=== PATIENT | male | born 1965 ===

== ENCOUNTER 2017-04-25 02:07 | Observation (INO) | payer MEDICAID ==
--- NOTE | 2017-04-25 02:20 | ED PDOC ---
Arrival/HPI - General Chief Complaint: High Blood Pressure Time Seen by Provider: 04/25/17 02:12 Historian: Patient - History of Present Illness Narrative History of Present Illness (Text): 04/25/17 02:20 Judson Stringer is a 51 year old male, whose past medical history includes hypertension, who presents to the Emergency department complaining of shortness of breath tonight. Patient states he went to his doctor's office and noted his blood pressure was elevated. Patient's hypertensive medication dosage was doubled and patient reports he began feeling dizzy and tired. Patient states tonight he developed a headache and shortness of breath. Patient denies any fever, chills, chest pain, nausea, vomiting, diarrhea, urinary symptoms, back pain, neck pain, or any other complaints. Symptom Onset: Gradual Symptom Course: Unchanged Activities at Onset: Light Context: Home Past Medical History - Provider Review Nursing Documentation Reviewed: Yes - Infectious Disease Hx of Infectious Diseases: None - Tetanus Immunization Tetanus Immunization: Unknown - Past Medical History Past Medical History: No Previous - Cardiac Hx Cardiac Disorders: Yes Hx Hypertension: Yes Hx Pacemaker: No Other/Comment: Enlarged heart - Pulmonary Hx Respiratory Disorders: No (DENIES HISTORY) - Neurological Hx Neurological Disorder: No - HEENT Hx HEENT Disorder: No (DENIES HISTORY) - Renal Hx Renal Disorder: No - Endocrine/Metabolic Hx Endocrine Disorders: No (DENIES HISTORY) - Hematological/Oncological Hx Blood Disorders: No - Integumentary Hx Dermatological Disorder: (DENIES HISTORY) Hx Basal Cell Carcinoma: No - Musculoskeletal/Rheumatological Hx Musculoskeletal Disorders: (DENIES HISTORY) - Gastrointestinal Hx Gastrointestinal Disorders: (DENIES HISTORY) - Genitourinary/Gynecological Hx Genitourinary Disorders: Yes Other/Comment: PATIENT REPORTS FREQUENT URINATION SINCE CHILDHOOD - Psychiatric Hx Psychophysiologic Disorder: No Hx Substance Use: No - Past Surgical History Past Surgical History: No Previous - Surgical History Hx Cardiac Catheterization: Yes Other/Comment: foot surgery - Anesthesia Hx Anesthesia Reactions: No Hx Malignant Hyperthermia: No - Suicidal Assessment Feels Threatened In Home Enviroment: No Family/Social History - Physician Review Nursing Documentation Reviewed: Yes Family/Social History: Unknown Family HX Smoking Status: Former Smoker Hx Alcohol Use: Yes Hx Substance Use: No Allergies/Home Meds Allergies/Adverse Reactions: Allergies No Known Allergies Allergy (Verified 04/25/17 02:21) Home Medications: Home Meds Medication Instructions Recorded Confirmed Digoxin [Lanoxin] 0.25 mg PO DAILY 07/09/16 04/25/17 Furosemide [Lasix] 40 mg PO DAILY 04/25/17 04/25/17 Potassium Chloride [K-Dur 20] 20 meq PO DAILY 04/25/17 04/25/17 Review of Systems - Physician Review All systems were reviewed & negative as marked: Yes - Review of Systems Constitutional: Fatigue. absent: Fevers Eyes: Normal ENT: Normal Respiratory: SOB Cardiovascular: Normal. absent: Chest Pain Gastrointestinal: Normal. absent: Abdominal Pain, Diarrhea, Nausea, Vomiting Genitourinary Male: Normal. absent: Dysuria, Frequency, Hematuria, Urinary Output Changes Musculoskeletal: Normal. absent: Back Pain, Neck Pain Skin: Normal. absent: Rash Neurological: Headache, Dizziness Endocrine: Normal Hemo/Lymphatic: Normal Psychiatric: Normal Physical Exam Vital Signs Reviewed: Yes Vital Signs Temp Pulse Pulse Resp BP BP Pulse Ox 04/25/17 16:26 71 18 164/91 H 99 04/25/17 14:29 72 152/101 H 04/25/17 14:28 72 152/101 H 04/25/17 14:00 63 04/25/17 13:44 98.9 F 70 18 148/96 H 04/25/17 09:46 71 148/96 H 04/25/17 09:31 70 18 148/96 H 04/25/17 08:39 77 20 164/110 H 100 04/25/17 08:36 77 164/110 H 04/25/17 06:42 72 19 135/88 100 04/25/17 05:16 80 22 150/96 H 98 04/25/17 04:21 67 22 168/97 H 100 04/25/17 03:18 98.9 F 71 16 157/111 H 99 04/25/17 03:06 70 18 163/102 H 97 04/25/17 03:01 80 187/117 H 04/25/17 02:20 83 187/117 H 04/25/17 02:17 97.7 F 67 18 196/124 H 97 Temperature: Afebrile Blood Pressure: Hypertensive Pulse: Regular Respiratory Rate: Normal Appearance: Positive for: Well-Appearing, Non-Toxic, Comfortable Pain Distress: None Mental Status: Positive for: Alert and Oriented X 3 - Systems Exam Head: Present: Atraumatic, Normocephalic Pupils: Present: PERRL Extroacular Muscles: Present: EOMI Conjunctiva: Present: Normal Mouth: Present: Moist Mucous Membranes Neck: Present: Normal Range of Motion Respiratory/Chest: Present: Clear to Auscultation, Good Air Exchange. No: Respiratory Distress, Accessory Muscle Use Cardiovascular: Present: Regular Rate and Rhythm, Normal S1, S2. No: Murmurs Abdomen: Present: Normal Bowel Sounds. No: Tenderness, Distention, Peritoneal Signs Back: Present: Normal Inspection Upper Extremity: Present: Normal Inspection. No: Cyanosis, Edema Lower Extremity: Present: Normal Inspection. No: Edema Neurological: Present: GCS=15, CN II-XII Intact, Speech Normal Skin: Present: Warm, Dry, Normal Color. No: Rashes Psychiatric: Present: Alert, Oriented x 3, Normal Insight, Normal Concentration Medical Decision Making ED Course and Treatment: 04/25/17 02:20 Impression: 51 year old male complaining of dizziness, headache, and shortness of breath. Plan: -- EKG -- Chest X-ray -- Labs, cardiac enzymes, BNP -- Duoneb -- Apresoline -- Reassess and disposition Prior Visits: Notes and results from previous visits were reviewed. On 09/18/2016, pt was seen in the Emergency department for left-sided dental pain. Pt was d/c home. Progress Notes: Reviewed EKG, NSR at [address]pm. LVH. Non-specific ST/T wave changes. 04/25/17 04:15 Reviewed radiology, Chest X-ray shows cardiomegaly. 04/25/17 04:41 Case discussed with medical psychotherapist medical scientific liaison, who is aware and agrees with plan. 04/25/17 04:[address] Simmons, who is aware and agrees with plan. Accepts pt in to hospitalist service. Pt will go to Telemetry observation for CHF. - Lab Interpretations Lab Results: 04/25/17 02:25 04/25/17 02:25 Lab Results 04/25/17 02:25: Sodium 139, Chloride 105, Potassium 3.6, Carbon Dioxide 24, Anion Gap 14, BUN 18, Creatinine 0.9, Est GFR ( Amer) > 60, Est GFR (Non- Af Amer) > 60, Random Glucose 110, Calcium 8.8, Total Bilirubin 0.5, AST 30, ALT 44, Alkaline Phosphatase 94, Lactate Dehydrogenase 599, Total Creatine Kinase 332 H, CK-MB (CK-2) 3.3, CK-MB (CK-2) % Cancelled, Troponin I 0.11 D, NT -Pro-B Natriuret Pep 643 H, Total Protein 6.7, Albumin 4.2, Globulin 2.5, Albumin/Globulin Ratio 1.7 04/25/17 02:25: pO2 56 H, VBG pH 7.38, VBG pCO2 43.0, VBG HCO3 25.4, VBG Total CO2 26.7, VBG O2 Sat (Calc) 92.3 H, VBG Base Excess 0.0, VBG Potassium 3.3 L, Sodium 139.0, Chloride 107.0, Glucose 108, Lactate 0.9, FiO2 21.0, Venous Blood Potassium 3.3 L 04/25/17 02:25: WBC 7.5 D, RBC 4.67, Hgb 15.4, Hct 41.9 L, MCV 89.7, MCH 33.0, MCHC 36.8, RDW 12.7, Plt Count 196, MPV 9.8, Gran % 64.8, Lymph % (Auto) 24.8, [place] % (Auto) 7.5 H, Eos % (Auto) 2.5, Baso % (Auto) 0.4, Gran # 4.87, Lymph # 1.9, [place] # 0.6, Eos # 0.2, Baso # 0.03 I have reviewed the lab results: Yes - RAD Interpretation Radiology Orders: 04/25/17 02:24 CHEST PORTABLE [RAD] Stat Cutter Down: ED Physician - EKG Interpretation Interpreted by ED Physician: Yes Type: 12 lead EKG - Medication Orders Current Medication Orders: Discontinued Medications Acetaminophen (Tylenol 325mg Tab) 650 mg PO STAT STA Stop: 04/25/17 05:28 Last Admin: 04/25/17 05:37 Dose: 650 mg MAR Pain/Vitals Document 04/25/17 05:37 JOL (Rec: 04/25/17 05:40 [id number]) Pain Reassessment Is This A Pain ReAssessment? No Sleep Is patient sleeping during reassessment? 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 Yes Sleep Is patient sleeping during reassessment? No Presence of Pain Presence of Pain Yes Location Pain Location [employer] Acetaminophen (Tylenol 325mg Tab) 650 mg PO Q6H PRN PRN Reason: Pain, moderate (4-7) Albuterol/Ipratropium (Duoneb 3 Mg/0.5 Mg (3 Ml) Ud) 3 ml IH STAT STA Stop: 04/25/17 02:24 Last Admin: 04/25/17 02:35 Dose: 3 ml Albuterol/Ipratropium (Duoneb 3 Mg/0.5 Mg (3 Ml) Ud) 3 ml IH [id number] PRN PRN Reason: Shortness of Breath Aspirin (Ecotrin) 81 mg PO DAILY [facility] Last Admin: 04/26/17 10:49 Dose: 81 mg Carvedilol (Coreg) 3.125 mg PO BID [facility] Last Admin: 04/25/17 09:46 Dose: 3.125 mg MAR Pulse and Blood Pressure Document 04/25/17 09:46 GMD (Rec: 04/25/17 09:47 GMD [id number]) Pulse Pulse Rate (60-90) 71 Blood Pressure Blood Pressure (100/60-150/90) 148/96 Carvedilol (Coreg) 12.5 mg PO STAT STA Stop: 04/25/17 11:56 Last Admin: 04/25/17 14:29 Dose: 12.5 mg MAR Pulse and Blood Pressure Document 04/25/17 14:29 EQ (Rec: 04/25/17 14:29 EQ [id number]) Pulse Pulse Rate (60-90) 72 Blood Pressure Blood Pressure (100/60-150/90) 152/101 Carvedilol (Coreg) 12.5 mg PO BID [facility] Last Admin: 04/26/17 10:51 Dose: 12.5 mg MAR Pulse and Blood Pressure Document 04/26/17 10:51 DH (Rec: 04/26/17 10:51 DH [id number]) Pulse Pulse Rate (60-90) 63 Blood Pressure Blood Pressure (100/60-150/90) 157/87 Carvedilol (Coreg) 25 mg PO BID [facility] Clonidine HCl (Catapres) 0.1 mg PO BID [facility] Last Admin: 04/25/17 08:36 Dose: 0.1 mg MAR Pulse and Blood Pressure Document 04/25/17 08:36 JOL (Rec: 04/25/17 08:38 JOL [id number]) Pulse Pulse Rate (60-90) 77 Blood Pressure Blood Pressure (100/60-150/90) 164/110 Digoxin (Lanoxin) 0.25 mg PO 1400 [facility] Last Admin: 04/26/17 14:50 Dose: 0.25 mg MAR Apical Pulse Rate Document 04/26/17 14:50 DH (Rec: 04/26/17 14:50 [place] [facility] [id number] Apical Pulse Rate Apical Pulse Rate (60-90 beats/min) 65 Diphenhydramine HCl (Benadryl) 25 mg PO ONCE ONE Stop: 04/25/17 21:43 Last Admin: 04/25/17 22:46 Dose: 25 mg Enoxaparin Sodium (Lovenox) 40 mg SC STAT STA PRN Reason: Protocol Stop: 04/25/17 12:01 Last Admin: 04/25/17 14:28 Dose: 40 mg Subcutaneous Administrations Document 04/25/17 14:28 EQ (Rec: 04/25/17 14:28 EQ [id number]) Injection Site MAR Injection Site Umbilicus Charges for Administration # of Subcutaneous Administrations 1 Furosemide (Lasix) 20 mg IVP ONCE ONE Stop: 04/25/17 04:45 Last Admin: 04/25/17 05:16 Dose: 20 mg MAR Blood Pressure Document 04/25/17 05:16 [email or web address] (Rec: 04/25/17 05:[id number]) Blood Pressure Blood Pressure (100/60-150/90) 150/96 IVP Administration Document 04/25/17 05:16 [email or web address] (Rec: 04/25/17 05:[id number]) Charges for Administration # of IVP Administrations 1 Furosemide (Lasix) 40 mg IVP DAILY [facility] Last Admin: 04/26/17 10:50 Dose: 40 mg MAR Blood Pressure Document 04/26/17 10:50 DH (Rec: 04/26/17 10:51 [id number]) Blood Pressure Blood Pressure (100/60-150/90) 157/87 IVP Administration Document 04/26/17 10:50 DH (Rec: 04/26/17 10:51 [id number]) Charges for Administration # of IVP Administrations 1 Furosemide (Lasix) 40 mg IVP ONCE ONE Stop: 04/25/17 15:01 Last Admin: 04/25/17 16:26 Dose: Hydralazine HCl (Apresoline) 10 mg IVP ONCE ONE Stop: 04/25/17 02:33 Last Admin: 04/25/17 03:01 Dose: 10 mg IVP Administration Document 04/25/17 03:01 [email or web address] (Rec: 04/25/17 03:[id number]) Charges for Administration # of IVP Administrations 1 MAR Pulse and Blood Pressure Document 04/25/17 03:01 [email or web address] (Rec: 04/25/17 03:[id number]) Pulse Pulse Rate (60-90) 80 Blood Pressure Blood Pressure (100/60-150/90) 187/117 Hydralazine HCl (Apresoline) 10 mg IVP Q6 PRN PRN Reason: for sbp.170 Ibuprofen (Motrin Tab) 600 mg PO STAT STA Stop: 04/25/17 17:00 Last Admin: 04/25/17 17:29 Dose: 600 mg MAR Pain/Vitals Document 04/25/17 17:29 EQ (Rec: 04/25/17 17:29 EQ [id number]) Pain Reassessment Is This A Pain ReAssessment? No Sleep Is patient sleeping during reassessment? No Presence of Pain Presence of Pain Yes Re-Assess: MAR Pain/Vitals Document 04/25/17 18:29 KL (Rec: 04/25/17 18:58 KL [id number]) Pain Reassessment Is This A Pain ReAssessment? Yes Sleep Is patient sleeping during reassessment? 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 Description Constant Intensity 8 Scale Used Numeric Lisinopril (Zestril) 20 mg PO STAT STA Stop: 04/25/17 11:56 Last Admin: 04/25/17 14:28 Dose: 20 mg MAR Pulse and Blood Pressure Document 04/25/17 14:28 EQ (Rec: 04/25/17 14:28 EQ [id number]) Pulse Pulse Rate (60-90) 72 Blood Pressure Blood Pressure (100/60-150/90) 152/101 Lisinopril (Zestril) 20 mg PO DAILY [facility] Last Admin: 04/26/17 10:50 Dose: 20 mg MAR Pulse and Blood Pressure Document 04/26/17 10:50 DH (Rec: 04/26/17 10:50 [id number]) Pulse Pulse Rate (60-90) 63 Blood Pressure Blood Pressure (100/60-150/90) 157/87 Nitroglycerin (Nitro-Bid 2% Oint) 1 ea TOP ONCE STA Stop: 04/25/17 03:44 Last Admin: 04/25/17 03:57 Dose: 1 ea Pneumococcal Polyvalent Vaccine (Pneumovax 23 Vaccine) 0.5 ml IM .ONCE ONE Stop: 04/25/17 13:56 Last Admin: 04/26/17 00:07 Dose: Potassium Chloride (K-Dur 20 Meq Er Tab) 40 meq PO STAT STA Stop: 04/25/17 11:59 Last Admin: 04/25/17 14:28 Dose: 40 meq Spironolactone (Aldactone) 25 mg PO BID [facility] Last Admin: 04/26/17 10:51 Dose: 25 mg - Scribe Statement The provider has reviewed the documentation as recorded by the Norberto De Provider Scribe Attestation: All medical record entries made by the Scribkaushik were at my direction and personally dictated by me. I have reviewed the chart and agree that the record accurately reflects my personal performance of the history, physical exam, medical decision making, and the department course for this patient. I have also personally directed, reviewed, and agree with the discharge instructions and disposition. Disposition/Present on Arrival - Present on Arrival Any Indicators Present on Arrival: No History of DVT/PE: No History of Uncontrolled Diabetes: No Urinary Catheter: No History of Decub. Ulcer: No History Surgical Site Infection Following: None - Disposition Have Diagnosis and Disposition been Completed?: Yes Diagnosis: Benign essential hypertension, Elevated troponin Disposition: HOSPITALIZED Disposition Time: 04:00 Condition: GOOD
[2017-04-25] MEDS ORDERED: Albuterol-Ipratrop 3 mg / 0.5 (3 ml) UD IH STA (02:23)
[2017-04-25 02:54] LABS: BASO # 0.03 K/mm3 (0.0-2.0); BASO % 0.4 % (0.0-3.0); EOS # 0.2 (0.0-0.7); EOS % 2.5 % (1.5-5.0); GRAN # 4.87 (1.4-6.5); GRAN % 64.8 % (50.0-68.0); HEMATOCRIT 41.9 % (42.0-52.0); LYMPH # 1.9 (1.2-3.4); LYMPH % 24.8 % (22.0-35.0); MEAN CELL VOLUME 89.7 fl (80.0-105.0); MEAN CORPUSCULAR HGB CONC 36.8 g/dl (31.0-37.0); MEAN PLATELET VOLUME 9.8 fl (7.0-11.0); MONO # 0.6 (0.1-0.6); MONO % 7.5 % (1.0-6.0); RED CELL DISTRIBUTION WIDTH 12.7 % (11.5-14.5)
[2017-04-25 02:57] LABS: VENOUS BLOOD PH 7.38 (7.32-7.43)
[2017-04-25 03:01] LABS: ALB/GLOB RATIO 1.7 (1.1-1.8); ALKALINE PHOSPHATASE 94 U/L (38-126); ALT/SGPT 44 U/L (7-56); AST/SGOT 30 U/L (17-59); BILIRUBIN,TOTAL 0.5 mg/dL (0.2-1.3); BLOOD UREA NITROGEN 18 mg/dL (7-21); CALCIUM 8.8 mg/dL (8.4-10.5); CARBON DIOXIDE 24 mmol/L (21-33); CHLORIDE 105 mmol/L (98-107); GFR AFRICAN-AMERICAN > 60; GLUCOSE,RANDOM 110 mg/dL (70-110); POTASSIUM 3.6 mmol/L (3.6-5.0); SODIUM 139 mmol/L (132-148); TOTAL PROTEIN 6.7 g/dL (5.8-8.3); WHITE BLOOD COUNT 7.5 10^3/ul (4.5-11.0)
[2017-04-25 03:14] LABS: TROPONIN I 0.11 ng/mL
[2017-04-25] MEDS ORDERED: Promethazine/Cod 6.25mg-10mg/5ml Syr UD PO STA (03:14)
[2017-04-25] MEDS ORDERED: Nitroglycerin 2% Ointment Foilpak UD TOP STA (03:43)
--- NOTE | 2017-04-25 06:06 | CP.PCM.HP ---
<Kennedy Villa - Last Filed: 04/25/17 06:31> History of Present Illness - History of Present Illness History of Present Illness: Chief Complaint Shortness of breath and headache HPI Patient is a 51 year old male with past medical history of CHF and uncontrolled HTN who presents to [facility] ED 04/25/17 with complaints of shortness of breath which started on 04/19. Patient states his SBP normally runs in the 200s and went to see his floor representative Dr. Barbour on 04/17 regarding his BP readings. Patient states he was directed by Dr. Barbour to double his dosage for clonidine. On a day after doubling his clonidine dosage, patient said he began to feel short of breath. He states it was present with exertion and resting. A few days later patient states he began to feel congested. Patient decided to come to the ED because with his shortness of breath and headaches he found he was unable to sleep and became really concerned, stating it was a similar story with his previous admission to [facility]. Patient denies fevers, chills, sick contacts, abdominal pain, n/v/, chest pain. PMD: None currently Truckman: Dr. Barbour SHx: Cardiac cath- negative as per patient FHx: [place] - father and sister Present on Admission - Present on Admission Any Indicators Present on Admission: No Review of Systems - Review of Systems Systems not reviewed;Unavailable: Acuity of Condition - Constitutional Constitutional: Headache. absent: Anorexia, Chills, Fever - Cardiovascular Cardiovascular: Dyspnea. absent: Chest Pain, Diaphoresis - Respiratory Respiratory: Cough, Dyspnea, Chest Congestion - Gastrointestinal Gastrointestinal: absent: Abdominal Pain, Nausea, Vomiting - Genitourinary Genitourinary: absent: Difficulty Urinating, Dysuria - Musculoskeletal Musculoskeletal: absent: Back Pain, Numbness - Psychiatric Psychiatric: Abnormal Sleep Pattern. absent: Anxiety - Endocrine Endocrine: absent: Cold Intolorance, Fatigue Past Patient History - Infectious Disease Hx of Infectious Diseases: None - Tetanus Immunizations Tetanus Immunization: Unknown - Past Medical History & Family History Past Medical History?: No - Past Social History Smoking Status: Former Smoker - CARDIAC Hx Cardiac Disorders: Yes Hx Hypertension: Yes Hx Pacemaker: No Other/Comment: Enlarged heart - PULMONARY Hx Respiratory Disorders: No (DENIES HISTORY) - NEUROLOGICAL Hx Neurological Disorder: No - HEENT Hx HEENT Problems: No (DENIES HISTORY) - RENAL Hx Chronic Kidney Disease: No - ENDOCRINE/METABOLIC Hx Endocrine Disorders: No (DENIES HISTORY) - HEMATOLOGICAL/ONCOLOGICAL Hx Blood Disorders: No - INTEGUMENTARY Hx Dermatological Problems: (DENIES HISTORY) Hx Basil Cell: No - MUSCULOSKELETAL/RHEUMATOLOGICAL Hx Musculoskeletal Disorders: (DENIES HISTORY) - GASTROINTESTINAL Hx Gastrointestinal Disorders: (DENIES HISTORY) - GENITOURINARY/GYNECOLOGICAL Hx Genitourinary Disorders: Yes Other/Comment: PATIENT REPORTS FREQUENT URINATION SINCE CHILDHOOD - PSYCHIATRIC Hx Psychophysiologic Disorder: No Hx Substance Use: No - SURGICAL HISTORY Hx Cardiac Catheterization: Yes Other/Comment: foot surgery - ANESTHESIA Hx Anesthesia Reactions: No Hx Malignant Hyperthermia: No Meds Allergies/Adverse Reactions: Allergies Allergy/AdvReac Type Severity Reaction Status Date / Time No Known Allergies Allergy Verified 04/25/17 02:21 Physical Exam - Constitutional Appears: Well - Head Exam Head Exam: ATRAUMATIC, NORMAL INSPECTION, NORMOCEPHALIC - Eye Exam Eye Exam: EOMI, Normal appearance Pupil Exam: NORMAL ACCOMODATION - ENT Exam ENT Exam: Mucous Membranes Moist, Normal Exam - Neck Exam Neck exam: Positive for: Normal Inspection - Respiratory Exam Respiratory Exam: Decreased Breath Sounds, Clear to Auscultation Bilateral - Cardiovascular Exam Cardiovascular Exam: REGULAR RHYTHM, +S1, +S2 - GI/Abdominal Exam GI & Abdominal Exam: Normal Bowel Sounds, Soft. absent: Rebound - Neurological Exam Neurological exam: Alert, CN II-XII Intact, Oriented x3 Results - Vital Signs Recent Vital Signs: Last Vital Signs Temp 98.9 F 04/25/17 03:18 Pulse 80 04/25/17 05:16 Resp 22 04/25/17 05:16 BP 150/96 H 04/25/17 05:16 Pulse Ox 98 04/25/17 05:16 - Labs Result Diagrams: 04/25/17 02:25 04/25/17 02:25 Assessment & Plan - Assessment and Plan (Free Text) Plan: Assessment 51 year old male presenting with shortness of breath Plan 1. CHF exacerbation -Lasix 40 IV daily -Carvedilol -Continue Digoxin, check dig levels -Hydralazine IV q 6 prn >165, hold if heart rate greater than 100 -O2 NC 2L -Duonebs PRN -Head above 30 -Monitor strict ins and outs and daily weights -Serial Trops and EKGs -81 mg Aspirin -Heart healthy diet -Cardiology Consult 2. HTN - Continue Clonidine <Iris ALBRECHT,Leighton - Last Filed: 04/26/17 13:27> Results - Vital Signs Recent Vital Signs: Last Vital Signs Temp 98.7 F 04/26/17 12:00 Pulse 63 04/26/17 12:00 Resp 20 04/26/17 12:00 BP 153/97 H 04/26/17 12:00 Pulse Ox 99 04/26/17 06:00 - Labs Result Diagrams: 04/26/17 05:40 04/26/17 05:40 Labs: Laboratory Results - last 24 hr 04/25/17 04/26/17 04/26/17 16:20 05:40 05:40 WBC 7.0 RBC 4.64 Hgb 15.1 Hct 41.9 L MCV 90.3 MCH 32.5 MCHC 36.0 RDW 12.7 Plt Count 184 MPV 9.8 Gran % 64.2 Lymph % (Auto) 23.0 [place] % (Auto) 8.6 H Eos % (Auto) 3.9 Baso % (Auto) 0.3 Gran # 4.49 Lymph # 1.6 [place] # 0.6 Eos # 0.3 Baso # 0.02 Sodium 140 Potassium 3.6 Chloride 106 Carbon Dioxide 25 Anion Gap 13 BUN 15 Creatinine 0.9 Est GFR ( Amer) > 60 Est GFR (Non-Af Amer) > 60 Random Glucose 109 Hemoglobin A1c Calcium 8.8 Phosphorus 3.8 Magnesium 2.2 Total Creatine Kinase 179 Triglycerides 147 Cholesterol 194 LDL Cholesterol Direct 133 H HDL Cholesterol 41 TSH 3rd Generation Influenza Typ A,B (EIA) Negative for flu a/b 04/26/17 04/26/17 05:40 05:40 WBC RBC Hgb Hct MCV MCH MCHC RDW Plt Count MPV Gran % Lymph % (Auto) [place] % (Auto) Eos % (Auto) Baso % (Auto) Gran # Lymph # [place] # Eos # Baso # Sodium Potassium Chloride Carbon Dioxide Anion Gap BUN Creatinine Est GFR ( Amer) Est GFR (Non-Af Amer) Random Glucose Hemoglobin A1c 5.6 Calcium Phosphorus Magnesium Total Creatine Kinase Triglycerides Cholesterol LDL Cholesterol Direct HDL Cholesterol TSH 3rd Generation 1.91 Influenza Typ A,B (EIA) Attending/Attestation - Attestation I have personally seen and examined this patient.: Yes I have fully participated in the care of the patient.: Yes I have reviewed all pertinent clinical information: Yes Notes (Text): -I agree with the above H&P completed by the resident physician with the following additions and/or changes: The patient is a 51 year old man with a history of poorly controlled HTN and systolic CHF, who is being admitted for acute CHF exacerbation and hypertensive urgency. We will start him on Lasix 40mg IV Q12hrs and monitor strict I/O's and daily weights. We will continue his home meds of Digoxin, Coreg and Clonidine. We will hold his home meds of Losartan for now (with plan to re-start once pt has been transitioned from IV to oral Lasix). Additional PRN IV Hydralazine, as needed. Cardiology has been consulted. 04/26/17 13:26
[2017-04-25] MEDS ORDERED: Albuterol-Ipratrop 3 mg / 0.5 (3 ml) UD IH PRN (06:54)
--- NOTE | 2017-04-25 08:55 | RAD ---
HISTORY: sob COMPARISON: 06/16/2016 FINDINGS: LUNGS: No active pulmonary disease. PLEURA: No significant pleural effusion identified, no pneumothorax apparent. CARDIOVASCULAR: Normal. OSSEOUS STRUCTURES: No significant abnormalities. VISUALIZED UPPER ABDOMEN: Normal. OTHER FINDINGS: None. IMPRESSION: No active disease.
--- NOTE | 2017-04-25 09:00 | CARD ---
APPROVED REPORT EKG Measurement Heart [id number] <Conclusion> Normal sinus rhythm Left ventricular hypertrophy with QRS widening NSSTW changes C/W prioe ECG 06/14/16: the rate is slower and the QTc is normal. Possible delta wave 1, AVL, consider pre-excitation.
[2017-04-25] MEDS ORDERED: Potassium Chloride 20 mEq ER Tab PO STA (11:58)
[2017-04-25] MEDS ORDERED: Enoxaparin 40 mg Syringe SC STA (12:00)
--- NOTE | 2017-04-25 12:45 | CT ---
PROCEDURE: CT HEAD WITHOUT CONTRAST. HISTORY: intractible headache COMPARISON: None available. TECHNIQUE: Axial computed tomography images were obtained through the head/brain without intravenous contrast. Radiation dose: Total exam DLP = 1059.36 mGy-cm. This CT exam was performed using one or more of the following dose reduction techniques: Automated exposure control, adjustment of the mA and/or kV according to patient size, and/or use of iterative reconstruction technique. FINDINGS: HEMORRHAGE: No intracranial hemorrhage. BRAIN: Stable limited subcortical white-matter change identified at the bilateral frontal and parietal lobes primarily, once again. No acute cortical edema is appreciated and there is no mass-effect. This may be a function of chronic microangiopathy of the patient is a vasculopath in particular however workup with MRI without contrast is advised for additional characterization, was previously evaluated. No suspicious extra-axial collection is identified in the midline brain anatomy is unremarkable. VENTRICLES: Unremarkable. No hydrocephalus. CALVARIUM: Unremarkable. PARANASAL SINUSES: Unremarkable as visualized. No significant inflammatory changes. MASTOID AIR CELLS: Unremarkable as visualized. No inflammatory changes. OTHER FINDINGS: None. IMPRESSION: Stable subcortical white matter lucency is seen in the bilateral frontal and parietal lobes once again without acute cortical edema or mass effect ; no intracranial hemorrhage or hydrocephalus. The etiology is unclear this could reflect chronic microangiopathy in this patient if the patient is a vasculopath arise other potential etiology. However, it appears somewhat prominent for patient not yet approaching at least 60 and further evaluation is recommended if not already performed, including brain MRI with and without contrast.
[2017-04-25 13:55] VITALS: BMI 32.9
[2017-04-25] MEDS ORDERED: Pneumococcal 23-Valent Vaccine IM ONE (13:55)
[2017-04-25] MEDS: Digoxin 250 mcg (0.25 mg) Tab PO SCH (14:43)
[2017-04-26 00:18] VITALS: RESP 20
--- NOTE | 2017-04-26 02:38 | CON ---
DATE: 04/25/2017 CONSULT SERVICE: Cardiology. REASON FOR CONSULTATION: Followup shortness of breath, headache, uncontrolled hypertension and feel congested, history of CHF. BRIEF CLINICAL HISTORY: This is a 51-year-old male with past medical history congestive heart failure, uncontrolled hypertension, cardiomyopathy, nonischemic, being seen by Dr. Barbour, recently seen on 04/17/2017 and he doubled up the blood pressure medication, came to the emergency room with complaint of shortness of breath, feel congested, and headache and blood pressure was 200 on admission. PAST MEDICAL HISTORY: Significant for uncontrolled hypertension, noncompliance with the medication. PREVIOUS CARDIAC WORKUP: As follows, the patient had an echocardiography on 06/14/2016, moderately dilated LV, concentric LV systolic function severely impaired, global hypokinesis. No thrombus noted. Mild mitral regurgitation. The patient had MUGA scan done that shows ejection fraction of 40%. The patient had a cardiac catheterization done on 07/09/2016 that showed nonobstructive coronary artery disease limited to D1, D2, ostial, 55-60% stenosis, nonischemic cardiomyopathy, ejection fraction of 35%, EDP was the range of 15-20. Recommendations: Continue diuretics, digoxin, MOHINDER inhibitor, followup MUGA scan if remain below 35, consider ACID. Recent MUGA scan shows 44% dated 06/11/2016. Last echo as mentioned on 06/14/2016, mild mitral regurgitation, RV systolic pressure 30, calculated ejection fraction 20%. CURRENT MEDICATIONS: The patient is taking at home, clonidine 0.1 mg b.i.d., losartan 100, furosemide 40, digoxin 0.25, Coreg 3.125 mg, aspirin 81 mg daily. ALLERGIES: NO KNOWN DRUG ALLERGIES. REVIEW OF SYSTEMS: As per HPI. PHYSICAL EXAMINATION: VITAL SIGNS: Temperature afebrile, heart rate 72, blood pressure 152/101. HEENT: PERRLA intact. NECK: Supple. No carotid bruits or thyromegaly. CHEST: Clear to auscultation. HEART: S1 and S2 regular. ABDOMEN: Soft. EXTREMITIES: Clubbing and cyanosis negative. LABORATORY DATA: Blood workup as follow, WBC 7.5, hemoglobin 15.4, hematocrit 41.9, platelet count 196. Chemistry shows sodium 130, potassium 3.6, chloride 105, carbon dioxide 24, anion gap of 18, BUN 14, and creatinine 0.9. Troponin 0.11. BNP 642, the troponins are elevated. IMPRESSION: A 51-year-old male with past medical history significant for hypertension, nonischemic cardiomyopathy, status post cardiac catheterization, nonobstructive coronary artery disease dated 07/09/2016, limited only to D1, D2, cardiomyopathy nonischemic, hypertension uncontrolled. Admitted with decompensated congestive heart failure. RECOMMENDATIONS: Start Lasix, MOHINDER inhibitors, ARB, Coreg, diuretics. Repeat MUGA scan. We will follow with you. Lipid profile, TSH, and hemoglobin A1c. Further recommendation after cardiac catheterization. We will follow with you. Thank you for providing me the opportunity in taking care of patient, Judson Stringer. Donovan Chase MD
[2017-04-26 06:00] LABS: BASO # 0.02 K/mm3 (0.0-2.0); BASO % 0.3 % (0.0-3.0); EOS # 0.3 (0.0-0.7); EOS % 3.9 % (1.5-5.0); GRAN # 4.49 (1.4-6.5); GRAN % 64.2 % (50.0-68.0); HEMATOCRIT 41.9 % (42.0-52.0); LYMPH # 1.6 (1.2-3.4); MEAN CELL VOLUME 90.3 fl (80.0-105.0); MEAN CORPUSCULAR HEMOGLOBIN 32.5 pg (25.0-35.0); MEAN PLATELET VOLUME 9.8 fl (7.0-11.0); MONO # 0.6 (0.1-0.6); MONO % 8.6 % (1.0-6.0); RED CELL DISTRIBUTION WIDTH 12.7 % (11.5-14.5)
[2017-04-26 06:24] LABS: BLOOD UREA NITROGEN 15 mg/dL (7-21); CALCIUM 8.8 mg/dL (8.4-10.5); CARBON DIOXIDE 25 mmol/L (21-33); CHLORIDE 106 mmol/L (98-107); CHOLESTEROL 194 mg/dL (130-200); GFR AFRICAN-AMERICAN > 60; GLUCOSE,RANDOM 109 mg/dL (70-110); MAGNESIUM 2.2 mg/dL (1.7-2.2); PHOSPHOROUS 3.8 mg/dL (2.5-4.5); POTASSIUM 3.6 mmol/L (3.6-5.0); SODIUM 140 mmol/L (132-148)
[2017-04-26 06:31] VITALS: O2SAT 99
[2017-04-26 12:13] VITALS: BP 153/97; TEMP 98.7
--- NOTE | 2017-04-26 14:19 | PN ---
DATE: 04/26/2017 REASON FOR CONSULTATION: Followup shortness of breath, headache, uncontrolled hypertension, feels congested, CHF. SUBJECTIVE: The patient feels a lot better since yesterday, lying flat, had a good sleep, was slept whole night. No chest pain, no shortness of breath, no palpitation. PHYSICAL EXAMINATION: GENERAL: Lying flat in the bed, not in apparent distress. VITAL SIGNS: As follows: Temperature afebrile, heart rate 54, blood pressure 142/88. HEENT: PERRLA. Extraocular muscles intact. NECK: Supple. No carotid bruit or thyromegaly. CHEST: Clear to auscultation. HEART: S1 and S2, regular. ABDOMEN: Soft. EXTREMITIES: Clubbing and cyanosis negative. LABORATORY DATA: Blood workup as follows; WBC is 7, hemoglobin 15, hematocrit 41.9, platelet count 184. Chemistry shows sodium 140, potassium 3.6, chloride 106, carbon dioxide 25, anion gap 13, BUN 15, creatinine 0.9. TSH 1.91. Triglyceride 147, cholesterol 194, LDL 133, HDL 41. IMPRESSION: Decompensated congestive heart failure, acute on chronic systolic dysfunction, status post cardiac catheterization, nonobstructive coronary artery disease dated 07/09/2016, only D1, D2 with elevated ejection fraction significantly reduced, last MUGA scan shows ejection fraction 44%. RECOMMENDATIONS: Continue Lasix, continue MOHINDER inhibitor, Coreg, diuretics. I will get a MUGA scan. Further recommendation after the MUGA scan. We will follow with you. Yesterday cardiac catheterization, no further plan for cardiac catheterization planned. We will get the MUGA scan today. We will continue Coreg 12.5 and continue lisinopril 20. Monitor and if remained stable possible discharge home. Thank you Dr. Ramires for the opportunity in taking care of patient, Judson Stringer. Donovan Chase MD
--- NOTE | 2017-04-26 14:26 | CP.PCM.DIS ---
<Chantal Valle - Last Filed: 04/26/17 16:33> Provider - Provider Date of Admission: 04/25/17 04:43 Attending physician: Jared Moreno MD Primary care physician: Sofiya Gentile MD Time Spent in preparation of Discharge (in minutes): 30 Hospital Course - Lab Results Lab Results: Most Recent Lab Values WBC 7.0 10^3/ul (4.5-11.0) 04/26/17 05:40 RBC 4.64 10^6/uL (3.5-6.1) 04/26/17 05:40 Hgb 15.1 g/dL (14.0-18.0) 04/26/17 05:40 Hct 41.9 % (42.0-52.0) L 04/26/17 05:40 MCV 90.3 fl (80.0-105.0) 04/26/17 05:40 MCH 32.5 pg (25.0-35.0) 04/26/17 05:40 MCHC 36.0 g/dl (31.0-37.0) 04/26/17 05:40 RDW 12.7 % (11.5-14.5) 04/26/17 05:40 Plt Count 184 10^3/uL (120.0-450.0) 04/26/17 05:40 MPV 9.8 fl (7.0-11.0) 04/26/17 05:40 Gran % 64.2 % (50.0-68.0) 04/26/17 05:40 Lymph % (Auto) 23.0 % (22.0-35.0) 04/26/17 05:40 Oliver % (Auto) 8.6 % (1.0-6.0) H 04/26/17 05:40 Eos % (Auto) 3.9 % (1.5-5.0) 04/26/17 05:40 Baso % (Auto) 0.3 % (0.0-3.0) 04/26/17 05:40 Gran # 4.49 (1.4-6.5) 04/26/17 05:40 Lymph # 1.6 (1.2-3.4) 04/26/17 05:40 Oliver # 0.6 (0.1-0.6) 04/26/17 05:40 Eos # 0.3 (0.0-0.7) 04/26/17 05:40 Baso # 0.02 K/mm3 (0.0-2.0) 04/26/17 05:40 pO2 56 mm/Hg (30-55) H 04/25/17 02:25 VBG pH 7.38 (7.32-7.43) 04/25/17 02:25 VBG pCO2 43.0 (40-60) 04/25/17 02:25 VBG HCO3 25.4 mmol/l (21-28) 04/25/17 02:25 VBG Total CO2 26.7 mmol.L (22-28) 04/25/17 02:25 VBG O2 Sat (Calc) 92.3 % (40-65) H 04/25/17 02:25 VBG Base Excess 0.0 mmol/L (0.0-2.0) 04/25/17 02:25 VBG Potassium 3.3 mmol/L (3.6-5.2) L 04/25/17 02:25 Sodium 139.0 mmol/L (132-148) 04/25/17 02:25 Chloride 107.0 mmol/L (98-107) 04/25/17 02:25 Glucose 108 mg/dl (75-110) 04/25/17 02:25 Lactate 0.9 mmol/L (0.7-2.1) 04/25/17 02:25 FiO2 21.0 % 04/25/17 02:25 Sodium 140 mmol/L (132-148) 04/26/17 05:40 Potassium 3.6 mmol/L (3.6-5.0) 04/26/17 05:40 Chloride 106 mmol/L (98-107) 04/26/17 05:40 Carbon Dioxide 25 mmol/L (21-33) 04/26/17 05:40 Anion Gap 13 (10-20) 04/26/17 05:40 BUN 15 mg/dL (7-21) 04/26/17 05:40 Creatinine 0.9 mg/dL (0.5-1.4) 04/26/17 05:40 Est GFR ( Amer) > 60 04/26/17 05:40 Est GFR (Non-Af Amer) > 60 04/26/17 05:40 Random Glucose 109 mg/dL (70-110) 04/26/17 05:40 Hemoglobin A1c 5.6 % (4.2-6.5) 04/26/17 05:40 Calcium 8.8 mg/dL (8.4-10.5) 04/26/17 05:40 Phosphorus 3.8 mg/dL (2.5-4.5) 04/26/17 05:40 Magnesium 2.2 mg/dL (1.7-2.2) 04/26/17 05:40 Total Bilirubin 0.5 mg/dL (0.2-1.3) 04/25/17 02:25 AST 30 U/L (17-59) 04/25/17 02:25 ALT 44 U/L (7-56) 04/25/17 02:25 Alkaline Phosphatase 94 U/L (38-126) 04/25/17 02:25 Lactate Dehydrogenase 599 U/L (333-699) 04/25/17 02:25 Total Creatine Kinase 179 U/L (35-230) 04/26/17 05:40 CK-MB (CK-2) 3.3 ng/mL (0.0-3.6) 04/25/17 02:25 CK-MB (CK-2) % Cancelled 04/25/17 02:25 Troponin I 0.07 ng/mL D 04/26/17 05:40 NT-Pro-B Natriuret Pep 643 pg/mL (0-450) H 04/25/17 02:25 Total Protein 6.7 g/dL (5.8-8.3) 04/25/17 02:25 Albumin 4.2 g/dL (3.0-4.8) 04/25/17 02:25 Globulin 2.5 gm/dL 04/25/17 02:25 Albumin/Globulin Ratio 1.7 (1.1-1.8) 04/25/17 02:25 Triglycerides 147 mg/dL (35-160) 04/26/17 05:40 Cholesterol 194 mg/dL (130-200) 04/26/17 05:40 LDL Cholesterol Direct 133 mg/dL (0-129) H 04/26/17 05:40 HDL Cholesterol 41 mg/dL (29-60) 04/26/17 05:40 TSH 3rd Generation 1.91 mIU/mL (0.46-4.68) 04/26/17 05:40 Venous Blood Potassium 3.3 mmol/L (3.6-5.2) L 04/25/17 02:25 Digoxin < 0.4 ng/mL (0.8-2.0) L 04/25/17 Unknown Influenza Typ A,B (EIA) Negative for flu a/b (NEGATIVE) 04/25/17 16:20 - Hospital Course Hospital Course: Patient is a 51 year old male with past medical history of CHF and uncontrolled HTN who presents to [facility] ED 04/25/17 with complaints of shortness of breath which started on 04/19. On arrival BPs noted to be 196/124. BNP - 643. Patient was treated for acute on chronic CHF exacerbation/headache/hypertension. Patient was started on Lisinopril, Lasix, coreg, spiranolactone, ASA, digoxin. Trops were trended. Cardiology was consulted and on the case. Patient went for MUGA scan. Patient was having intractable headache, CT head showed subcortical white matter lucency B/L frontal and parietal lobes without acute cortical edema/mass effect. MRI with/without contrast was recommended however patient states will go to [facility] [place] because he is claustrophobic. Motrin 600mg was given for headache with relief. On day of discharge patient was doing well. Shortness of breath and headache improved. Patient was ambulating and tolerating diet. Patient was stable for discharge. Patient to follow up with cardiology and PMD within one week. Prescriptions for medications given. All questions and concerns were addressed. Discharge Exam - Head Exam Head Exam: ATRAUMATIC, NORMAL INSPECTION, NORMOCEPHALIC - Eye Exam Eye Exam: EOMI, Normal appearance Pupil Exam: NORMAL ACCOMODATION, PERRL - ENT Exam ENT Exam: Mucous Membranes Moist - Neck Exam Neck exam: Full Rom - Respiratory Exam Respiratory Exam: Clear to PA & Lateral, NORMAL BREATHING PATTERN, UNREMARKABLE. absent: Rales, Rhonchi, Wheezes - Cardiovascular Exam Cardiovascular Exam: REGULAR RHYTHM, +S1, +S2 - GI/Abdominal Exam GI & Abdominal Exam: Normal Bowel Sounds, Soft. absent: Guarding, Rigid, Tenderness - Extremities Exam Extremities exam: normal inspection, pedal pulses present - Back Exam Back exam: NORMAL INSPECTION - Neurological Exam Neurological exam: Alert, Normal Gait, Oriented x3 - Skin Skin Exam: Dry, Normal Color, Warm Discharge Plan - Discharge Medications Prescriptions: Albuterol HFA [Ventolin HFA 90 mcg/actuation (8 g)] 1 puff IH Q6H PRN #1 inhaler PRN Reason: Shortness Of Breath Carvedilol [Coreg] 12.5 mg PO BID #28 tab Furosemide [Lasix] 40 mg PO DAILY #14 tablet Ibuprofen [Motrin] 600 mg PO Q6H PRN #12 tab PRN Reason: Headache Lisinopril [Zestril] 20 mg PO DAILY #14 tablet Potassium Chloride [K-Dur 20 mEq ER Tab] 20 meq PO DAILY #14 tab Spironolactone [Aldactone] 25 mg PO BID 28 Days #28 tablet - Follow Up Plan Condition: GOOD Disposition: HOME/ ROUTINE Instructions: Heart Failure (DC), Hypertension (DC) Additional Instructions: Patient is clear for discharge home. Patient to follow up with Cardiology and PMD within 1 week. Patient will need to have MRI brain with/without contrast as an outpatient for further evaluation. Encouraged salt-free diet. Take medications as prescribed. Referrals: Sofiya Gentile MD [Primary Care Provider] - <Jared Moreno - Last Filed: 04/26/17 17:48> Provider - Provider Date of Admission: 04/25/17 04:43 Attending physician: Jared Moreno MD Primary care physician: Sofiya Gentile MD Time Spent in preparation of Discharge (in minutes): 35 Hospital Course - Lab Results Lab Results: Most Recent Lab Values WBC 7.0 10^3/ul (4.5-11.0) 04/26/17 05:40 RBC 4.64 10^6/uL (3.5-6.1) 04/26/17 05:40 Hgb 15.1 g/dL (14.0-18.0) 04/26/17 05:40 Hct 41.9 % (42.0-52.0) L 04/26/17 05:40 MCV 90.3 fl (80.0-105.0) 04/26/17 05:40 MCH 32.5 pg (25.0-35.0) 04/26/17 05:40 MCHC 36.0 g/dl (31.0-37.0) 04/26/17 05:40 RDW 12.7 % (11.5-14.5) 04/26/17 05:40 Plt Count 184 10^3/uL (120.0-450.0) 04/26/17 05:40 MPV 9.8 fl (7.0-11.0) 04/26/17 05:40 Gran % 64.2 % (50.0-68.0) 04/26/17 05:40 Lymph % (Auto) 23.0 % (22.0-35.0) 04/26/17 05:40 Oliver % (Auto) 8.6 % (1.0-6.0) H 04/26/17 05:40 Eos % (Auto) 3.9 % (1.5-5.0) 04/26/17 05:40 Baso % (Auto) 0.3 % (0.0-3.0) 04/26/17 05:40 Gran # 4.49 (1.4-6.5) 04/26/17 05:40 Lymph # 1.6 (1.2-3.4) 04/26/17 05:40 Oliver # 0.6 (0.1-0.6) 04/26/17 05:40 Eos # 0.3 (0.0-0.7) 04/26/17 05:40 Baso # 0.02 K/mm3 (0.0-2.0) 04/26/17 05:40 pO2 56 mm/Hg (30-55) H 04/25/17 02:25 VBG pH 7.38 (7.32-7.43) 04/25/17 02:25 VBG pCO2 43.0 (40-60) 04/25/17 02:25 VBG HCO3 25.4 mmol/l (21-28) 04/25/17 02:25 VBG Total CO2 26.7 mmol.L (22-28) 04/25/17 02:25 VBG O2 Sat (Calc) 92.3 % (40-65) H 04/25/17 02:25 VBG Base Excess 0.0 mmol/L (0.0-2.0) 04/25/17 02:25 VBG Potassium 3.3 mmol/L (3.6-5.2) L 04/25/17 02:25 Sodium 139.0 mmol/L (132-148) 04/25/17 02:25 Chloride 107.0 mmol/L (98-107) 04/25/17 02:25 Glucose 108 mg/dl (75-110) 04/25/17 02:25 Lactate 0.9 mmol/L (0.7-2.1) 04/25/17 02:25 FiO2 21.0 % 04/25/17 02:25 Sodium 140 mmol/L (132-148) 04/26/17 05:40 Potassium 3.6 mmol/L (3.6-5.0) 04/26/17 05:40 Chloride 106 mmol/L (98-107) 04/26/17 05:40 Carbon Dioxide 25 mmol/L (21-33) 04/26/17 05:40 Anion Gap 13 (10-20) 04/26/17 05:40 BUN 15 mg/dL (7-21) 04/26/17 05:40 Creatinine 0.9 mg/dL (0.5-1.4) 04/26/17 05:40 Est GFR ( Amer) > 60 04/26/17 05:40 Est GFR (Non-Af Amer) > 60 04/26/17 05:40 Random Glucose 109 mg/dL (70-110) 04/26/17 05:40 Hemoglobin A1c 5.6 % (4.2-6.5) 04/26/17 05:40 Calcium 8.8 mg/dL (8.4-10.5) 04/26/17 05:40 Phosphorus 3.8 mg/dL (2.5-4.5) 04/26/17 05:40 Magnesium 2.2 mg/dL (1.7-2.2) 04/26/17 05:40 Total Bilirubin 0.5 mg/dL (0.2-1.3) 04/25/17 02:25 AST 30 U/L (17-59) 04/25/17 02:25 ALT 44 U/L (7-56) 04/25/17 02:25 Alkaline Phosphatase 94 U/L (38-126) 04/25/17 02:25 Lactate Dehydrogenase 599 U/L (333-699) 04/25/17 02:25 Total Creatine Kinase 179 U/L (35-230) 04/26/17 05:40 CK-MB (CK-2) 3.3 ng/mL (0.0-3.6) 04/25/17 02:25 CK-MB (CK-2) % Cancelled 04/25/17 02:25 Troponin I 0.07 ng/mL D 04/26/17 05:40 NT-Pro-B Natriuret Pep 643 pg/mL (0-450) H 04/25/17 02:25 Total Protein 6.7 g/dL (5.8-8.3) 04/25/17 02:25 Albumin 4.2 g/dL (3.0-4.8) 04/25/17 02:25 Globulin 2.5 gm/dL 04/25/17 02:25 Albumin/Globulin Ratio 1.7 (1.1-1.8) 04/25/17 02:25 Triglycerides 147 mg/dL (35-160) 04/26/17 05:40 Cholesterol 194 mg/dL (130-200) 04/26/17 05:40 LDL Cholesterol Direct 133 mg/dL (0-129) H 04/26/17 05:40 HDL Cholesterol 41 mg/dL (29-60) 04/26/17 05:40 TSH 3rd Generation 1.91 mIU/mL (0.46-4.68) 04/26/17 05:40 Venous Blood Potassium 3.3 mmol/L (3.6-5.2) L 04/25/17 02:25 Digoxin < 0.4 ng/mL (0.8-2.0) L 04/25/17 Unknown Influenza Typ A,B (EIA) Negative for flu a/b (NEGATIVE) 04/25/17 16:20 Attending/Attestation - Attestation I have personally seen and examined this patient.: Yes I have fully participated in the care of the patient.: Yes I have reviewed all pertinent clinical information, including history, physical exam and plan: Yes Notes (Text): I have seen and examined the patient at bedside. Agree with the above note with the following addition/ exceptions: Briefly this is 51 year old male with history of CHF (EF~44%) and uncontrolled HTN who was admitted for shortness of breath and found to have acute systolic CHF exacerbation and accelerated hypertension. His medications were adjusted . Patient feels better and denies any complaints today. MUGA scan done. Official result pending. Discussed with crm campaign manager who agreed to send the patient home. Upon discharge patient will follow up with Dr Sofiya Barbour. Dr Jared Moreno
[2017-04-26] MEDS: Digoxin 250 mcg (0.25 mg) Tab PO SCH (14:50)
[2017-04-26 14:52] VITALS: PULSE 65
[2017-04-26 18:18] VITALS: PULSE 68
--- NOTE | 2017-04-26 21:29 | CARD ---
APPROVED REPORT INDICATION Congestive Heart Failure Evaluate LV and RV EF% PROCEDURE The above named patient recieved 28.3 millicuries of Tc99m tagged red blood cells intravenously. After achieving equilibrium, gated imaging of 16/frame/cycle was performed utillizing Gamma camera interfaced with a digital computer and gated device. Gated imaging was then performed in the left anterior oblique, anterior, and the left lateral projections. Findings Left Ventricle: The quality of the study is good. The left ventricle is moderatey enlarged with thickened myocardium. The right ventricle is normal in size. Wall motion study shows mild diffuse hypokinesis of the left ventricle. RV wall motion is normal. The right atrium is dynamic.. The remainder of the study is unremarkable. Impressions Mild LV dysfunction with diffuse hypokinesis. LVEF = 44%. LVH. Normal RV wall motion. In comparison with the left study of 06/14/2016, there is no significant change.
== END 2017-04-26 17:28 | disposition home or self-care (01) ==
LOC: ED 02:07 → ERH 04:43 → 2RNO 17:25
PROVIDERS: ADMIT Internal Medicine; ATTEND Hospitalist
DX: I11.0 Hypertensive heart disease with heart failure (principal); I50.23 Acute on chronic systolic (congestive) heart failure; I16.0 Hypertensive urgency; I42.9 Cardiomyopathy, unspecified; I25.10 Atherosclerotic heart disease of native coronary artery without angina pectoris; I34.0 Nonrheumatic mitral (valve) insufficiency; F40.240 Claustrophobia; Z91.14 Patient's other noncompliance with medication regimen; Z87.891 Personal history of nicotine dependence
CPT/HCPCS: 36415; 70450; 71010; 78472; 80048; 80053; 80061; 80162; 82550; 82553; 82803; 83036; 83615; 83735; 83880; 84100; 84443; 84484; 85025; 87804; 93005; 94640; 96372; 96374; 96375; 96376; 99285; G0378; J0360; J1650; J1940